=== PATIENT | female | born 1995 | race Caucasian/White ===

== ENCOUNTER 2017-06-07 11:08 | Emergency (ER) | payer OTHER ==
[~2017-06-07] VITALS: Ht 165.1 cm; Wt 95.3 kg
[2017-06-07 12:08] LABS: BILIRUBIN NEGATIVE (NEGATIVE); BLOOD 1+ (NEGATIVE); CLARITY CLOUDY (CLEAR); COLOR YELLOW (YELLOW); GLUCOSE NEGATIVE (NEGATIVE); KETONE TRACE (NEGATIVE); LEUKO ESTERASE TRACE (NEGATIVE); NITRITE NEGATIVE (NEGATIVE); SPECIFIC GRAVITY >= 1.030 (1.005-1.030); UROBILINOGEN 0.2 E.U./dl (0.2-1.0)
[2017-06-07 12:26] LABS: BACTERIA 3+; EPITHELIAL CELLS 40-50; WBC 41-50 wbc/hpf (0-5)
[2017-06-07] MEDS ORDERED: AMOXICILLIN500 M2 PO (12:57)
[2017-06-07] MEDS ORDERED: ZOFRAN ODT4 MG SL (12:58)
== END 2017-06-07 13:00 | disposition home or self-care (01) ==
LOC: ED 11:08
PROVIDERS: Emergency Medicine
DX: J02.0 Streptococcal pharyngitis (principal); F17.200 Nicotine dependence, unspecified, uncomplicated; Z88.1 Allergy status to other antibiotic agents

== ENCOUNTER 2018-05-25 15:47 | Emergency (ER) | payer OTHER ==
[~2018-05-25] VITALS: Ht 162.5 cm; Wt 95.3 kg
[~2018-05-25 15:47] MED LIST: AMOXICILLIN500 M2 PO; ZOFRAN ODT4 MG SL
[2018-05-25] MEDS ORDERED: MONTELUKAST SOD10 MG PO (15:50)
[2018-05-25] MEDS ORDERED: AMITRIPTYLINE H10 M1 PO (15:50)
[2018-05-25 16:41] LABS: BASO % 0.1 % (0.0-1.0); EOS # 0.1 10*3/uL (0.0-0.4); EOS % 0.7 % (1.0-4.0); HEMATOCRIT 37.9 % (37.0-47.0); HEMOGLOBIN 12.9 g/dl (12.0-16.0); LYMPH # 1.8 10*3/uL (1.3-4.4); LYMPH % 18.7 % (27.0-41.0); MEAN CELL VOLUME 91.5 fl (81.0-99.0); MEAN CORPUSCULAR HGB 31.2 pg (27.0-31.0); MEAN PLATELET VOLUME 9.9 fl (9.6-12.3); MONO # 0.7 10*3/uL (0.1-1.0); MONO % 7.2 % (3.0-9.0); NEUT # 7.1 10*3/uL (2.3-7.9); PLATELET COUNT AUTOMATED 278 10*3/uL (130-400); RED BLOOD COUNT 4.14 10*6/uL (4.10-5.10); RED CELL DISTRI WIDTH 12.5 % (0-14.5); WHITE BLOOD COUNT 9.8 10*3/uL (4.8-10.8)
[2018-05-25 16:57] LABS: ALBUMIN 3.4 gm/dl (3.1-4.5); ALKALINE PHOSPHATASE 93 U/L (45-117); BUN 10 mg/dl (7-24); CHLORIDE 105 mmol/L (98-107); CREATININE 0.64 mg/dL (0.55-1.02); POTASSIUM 3.9 mmol/L (3.5-5.1); SGOT/AST 16 IU/L (3-35); SGPT/ALT 15 U/L (12-78); SODIUM 136 mmol/L (136-145); TOTAL PROTEIN 7.6 gm/dL (6.4-8.2)
[2018-05-25] MEDS ORDERED: TESSALON PERLE100 MG PO (17:04)
[2018-05-25] MEDS ORDERED: PROAIR HFA8.5 GM INH (17:09)
== END 2018-05-25 17:09 | disposition home or self-care (01) ==
LOC: ED 15:47
PROVIDERS: Nurse Practitioner Family
DX: B34.9 Viral infection, unspecified (principal); J45.909 Unspecified asthma, uncomplicated; Z88.1 Allergy status to other antibiotic agents; Z79.899 Other long term (current) drug therapy

== ENCOUNTER 2021-01-16 19:47 | Emergency (ER) | payer OTHER ==
[~2021-01-16] VITALS: Wt 104.3 kg
[~2021-01-16 19:47] MED LIST changes: +AMITRIPTYLINE H10 M1 PO; +MONTELUKAST SOD10 MG PO; +PROAIR HFA8.5 GM INH; +TESSALON PERLE100 MG PO
[2021-01-16 23:52] LABS: BASO % 0.2 % (0.0-1.0); EOS % 0.4 % (1.0-4.0); HEMATOCRIT 37.3 % (37.0-47.0); LYMPH # 2.7 10*3/uL (1.3-4.4); LYMPH % 28.7 % (27.0-41.0); MEAN CORPUSCULAR HGB 29.1 pg (27.0-31.0); MEAN CORPUSCULAR HGB CONC 32.7 g/dl (33.0-37.0); MEAN PLATELET VOLUME 9.6 fl (9.6-12.3); MONO # 0.4 10*3/uL (0.1-1.0); NEUT # 6.2 10*3/uL (2.3-7.9); NEUT % 66.5 % (47.0-73.0); PLATELET COUNT AUTOMATED 345 10*3/uL (130-400); RED BLOOD COUNT 4.19 10*6/uL (4.10-5.10); RED CELL DISTRI WIDTH 13.1 % (0-14.5); WHITE BLOOD COUNT 9.3 10*3/uL (4.8-10.8)
[2021-01-17 00:05] LABS: BUN 7 mg/dl (7-24); CHLORIDE 104 mmol/L (98-107); CREATININE 0.53 mg/dL (0.55-1.02); POTASSIUM 3.6 mmol/L (3.5-5.1); SODIUM 135 mmol/L (136-145)
== END 2021-01-17 02:36 | disposition home or self-care (01) ==
LOC: ED 19:47
PROVIDERS: Internal Medicine
DX: R42 Dizziness and giddiness (principal); R20.2 Paresthesia of skin; Z88.1 Allergy status to other antibiotic agents; Z88.8 Allergy status to other drugs, medicaments and biological substances; Z79.899 Other long term (current) drug therapy

== ENCOUNTER 2024-01-15 16:23 | Emergency (ER) | payer OTHER ==
[~2024-01-15] VITALS: Ht 162.5 cm; Wt 77.1 kg
[2024-01-15] MEDS ORDERED: diphenhydrAMINE hydrochloride 50 MG/ML VIAL IV ONE (17:05)
[2024-01-15] MEDS ORDERED: Ondansetron Hydrochloride 4 MG/2 ML VIAL IV ONE (17:05)
[2024-01-15] MEDS ORDERED: SODIUM CHLORIDE 0.9% 1,000 ML IV ONE (17:05)
[2024-01-15 17:32] LABS: BASO % 0.1 % (0.0-1.0); EOS % 0.4 % (1.0-4.0); HEMATOCRIT 42.8 % (37.0-47.0); LYMPH # 2.2 10*3/uL (1.3-4.4); LYMPH % 30.4 % (27.0-41.0); MEAN CELL VOLUME 93.4 fl (81.0-99.0); MEAN CORPUSCULAR HGB CONC 33.2 g/dl (33.0-37.0); MEAN PLATELET VOLUME 9.1 fl (9.6-12.3); MONO # 0.4 10*3/uL (0.1-1.0); MONO % 5.4 % (3.0-9.0); NEUT # 4.6 10*3/uL (2.3-7.9); NEUT % 63.6 % (47.0-73.0); PLATELET COUNT AUTOMATED 295 10*3/uL (130-400); RED BLOOD COUNT 4.58 10*6/uL (4.10-5.10); WHITE BLOOD COUNT 7.3 10*3/uL (4.8-10.8)
[2024-01-15 17:48] LABS: BILIRUBIN Negative (Negative); BLOOD Negative (Negative); CLARITY Cloudy (Clear); COLOR Yellow (Yellow); GLUCOSE 3+ (Negative); KETONE 4+ (Negative); LEUKO ESTERASE Negative (Negative); NITRITE Negative (Negative); SPECIFIC GRAVITY >= 1.030 (1.001-1.030); UROBILINOGEN 0.2 E.U./dl (0.0-1.0)
[2024-01-15 17:55] LABS: ALKALINE PHOSPHATASE 85 U/L (46-116); BUN 8 mg/dl (9-23); CHLORIDE 103 mmol/L (98-107); LIPASE 34 U/L (12-53); POTASSIUM 3.8 mmol/L (3.4-5.1); SGPT/ALT 12 U/L (5-49); TOTAL PROTEIN 7.3 gm/dL (6.0-8.0)
[2024-01-15 18:16] LABS: BACTERIA 2+; EPITHELIAL CELLS TNTC; RBC 0-2 rbc/hpf (0-2); WBC 0-2 wbc/hpf (0-5)
[2024-01-15 18:17] LABS: MUCOUS 1+
[2024-01-15] MEDS ORDERED: Pantoprazole Sodium 40 MG VIAL IV ONE (18:25)
[2024-01-15] MEDS ORDERED: Lidocaine Hydrochloride 15 ML UDC PO STA (19:28)
[2024-01-15] MEDS ORDERED: Dicyclomine Hydrochloride 20 MG/10 ML OSYR PO STA (19:28)
[2024-01-15] MEDS ORDERED: MG-AL HYDROXIDE/SIMETICONE 30 ML UDC PO STA (19:28)
[2024-01-15] MEDS ORDERED: HEARTBURN RELIE20 MG PO (20:22)
== END 2024-01-15 20:53 | disposition home or self-care (01) ==
LOC: ED 16:23
PROVIDERS: Internal Medicine
DX: K21.9 Gastro-esophageal reflux disease without esophagitis (principal); R11.2 Nausea with vomiting, unspecified; R19.7 Diarrhea, unspecified; F17.200 Nicotine dependence, unspecified, uncomplicated; Z88.1 Allergy status to other antibiotic agents; Z88.8 Allergy status to other drugs, medicaments and biological substances; Z79.899 Other long term (current) drug therapy

== ENCOUNTER 2024-07-03 08:01 | Emergency (ER) | payer OTHER ==
[~2024-07-03] VITALS: Ht 162.5 cm; Wt 72.6 kg
[~2024-07-03 08:01] MED LIST changes: +HEARTBURN RELIE20 MG PO
[2024-07-03] MEDS ORDERED: SODIUM CHLORIDE 0.9% 1,000 ML IV ONE (08:15)
[2024-07-03] MEDS ORDERED: VERAPAMIL HCL180 M1 PO (08:23)
[2024-07-03] MEDS ORDERED: ONDANSETRON HYDR8 MG PO (08:23)
[2024-07-03] MEDS ORDERED: AMITRIPTYLINE150 M1 PO (08:23)
[2024-07-03] MEDS ORDERED: OZEMPIC2 MG/0.71 SQ (08:24)
[2024-07-03] MEDS ORDERED: METOCLOPRAMIDE H5 M1 PO (08:24)
[2024-07-03] MEDS ORDERED: LUBIPROSTONE24 MCG PO (08:24)
[2024-07-03] MEDS ORDERED: OMEPRAZOLE40 MG PO (08:25)
[2024-07-03] MEDS ORDERED: SUMATRIPTAN SU100 M1 PO (08:25)
[2024-07-03] MEDS ORDERED: POTASSIUM CHLO20 ME3 PO (08:25)
[2024-07-03] MEDS ORDERED: GLIPIZIDE10 M1 PO (08:25)
[2024-07-03] MEDS ORDERED: JARDIANCE25 MG PO (08:26)
[2024-07-03] MEDS ORDERED: ACTOS15 M1 PO (08:27)
[2024-07-03 08:28] LABS: BASO % 0.1 % (0.0-1.0); EOS % 0.3 % (1.0-4.0); HEMATOCRIT 38.1 % (37.0-47.0); MEAN CELL VOLUME 96.5 fl (81.0-99.0); MEAN CORPUSCULAR HGB 31.6 pg (27.0-31.0); MEAN CORPUSCULAR HGB CONC 32.8 g/dl (33.0-37.0); MONO # 0.6 10*3/uL (0.1-1.0); MONO % 6.3 % (3.0-9.0); NEUT % 71.8 % (47.0-73.0); PLATELET COUNT AUTOMATED 315 10*3/uL (130-400); RED BLOOD COUNT 3.95 10*6/uL (4.10-5.10); RED CELL DISTRI WIDTH 12.1 % (0-14.5); WHITE BLOOD COUNT 9.7 10*3/uL (4.8-10.8)
[2024-07-03 09:03] LABS: BUN 10 mg/dl (9-23); CHLORIDE 101 mmol/L (98-107); POTASSIUM 3.8 mmol/L (3.4-5.1)
== END 2024-07-03 09:58 | disposition home or self-care (01) ==
LOC: ED 08:01
PROVIDERS: Emergency Medicine
DX: E11.649 Type 2 diabetes mellitus with hypoglycemia without coma (principal); Z79.899 Other long term (current) drug therapy; Z79.84 Long term (current) use of oral hypoglycemic drugs; Z88.1 Allergy status to other antibiotic agents; Z88.8 Allergy status to other drugs, medicaments and biological substances